=== PATIENT | female | born 1965 | race Two or more races ===

== ENCOUNTER 2022-08-24 11:08 | Emergency (ER) | payer OTHER ==
[~2022-08-24] VITALS: Ht 152.4 cm; Wt 68.0 kg
[2022-08-24] MEDS ORDERED: MECLIZINE HCL25 MG PO (14:14)
== END 2022-08-24 14:22 | disposition home or self-care (01) ==
LOC: ER 11:08
DX: R42 Dizziness and giddiness (principal)